=== PATIENT | male | born 1990 | race American Indian/Alaskan Native ===

== ENCOUNTER 2016-10-19 12:00 | Inpatient (IN) | payer OTHER ==
[2016-10-19] MEDS ORDERED: NACL 0.9% 500 ML 500 ML IV ONE (13:54)
[2016-10-19] MEDS ORDERED: TYLENOL PO ONE (13:56)
[2016-10-19 14:37] LABS: Hematocrit 37.9 % (35.5-45.6); Hemoglobin 12.7 gm/dl (11.8-15.2); Mean Corpuscular HGB Conc 34 % (32-34); Mean Corpuscular Hemoglobin 30 pg (28-32); Mean Corpuscular Volume 90 fl (84-94); Platelet Count 203 K/mm3 (140-440); Red Blood Count 4.23 M/mm3 (3.65-5.03); Red Cell Distribution Width 13.9 % (13.2-15.2)
[2016-10-19 14:47] LABS: INR 0.95 (0.87-1.13)
[2016-10-19 14:59] LABS: Alanine Aminotransferase 19 units/L (7-56); Albumin 4.3 g/dL (3.9-5); Alkaline Phosphatase 52 units/L (35-129); Anion Gap 21 mmol/L; BUN/Creatinine Ratio 12.22; Blood Urea Nitrogen 11 mg/dL (9-20); Calcium 8.9 mg/dL (8.4-10.2); Carbon Dioxide 22 mmol/L (22-30); Chloride 93.8 mmol/L (98-107); Glucose 86 mg/dL (75-100); Potassium 4.2 mmol/L (3.6-5.0); Sodium 133 mmol/L (137-145); Total Protein 8.5 g/dL (6.3-8.2)
--- NOTE | 2016-10-19 16:18 | XRay Report ---
FINAL REPORT PROCEDURE: XR CHEST ROUTINE 2V TECHNIQUE: PA and lateral chest radiographs were obtained. CPT 00021 HISTORY: cough/fever r/o pneumonia COMPARISON: No prior studies are available for comparison. FINDINGS: Heart: Normal contour. Mediastinum/Vessels: Normal contour. Lungs/Pleural space: No infiltrate, effusion, or pneumothorax. Bony thorax: No acute osseous abnormality. Other: IMPRESSION: No infiltrates are identified.
[2016-10-19 16:58] LABS: Basophils % (Manual) 0 % (0.0-1.8); Blastocytes % (Manual) 0 %
[2016-10-19 17:00] LABS: Anisocytosis 1+; Diff Status Complete; Elliptocytes Few; Poikilocytosis Few; Target Cells Rare
[2016-10-19] MEDS ORDERED: MOTRIN PO ONE (19:22)
--- NOTE | 2016-10-19 19:38 | Emergency Department Report ---
ED Fever HPI - General Chief Complaint: Fever Stated Complaint: FEVER Time Seen by Provider: 10/19/16 19:22 - History of Present Illness Fever Severity/Quality: low grade ED Review of Systems ROS: Stated complaint: FEVER Other details as noted in HPI ED Past Medical Hx - Past Medical History Hx HIV: Yes Additional medical history: shingles. syphillis - Surgical History Additional Surgical History: neck surgery - Social History Smoking Status: Current Every Day Smoker Substance Use Type: None - Medications Home Medications: Home Medications Medication Instructions Recorded Confirmed Last Taken Type Ibuprofen [Motrin 800 MG tab] 800 mg PO TID PRN #30 tablet 05/25/14 Unknown Rx Levofloxacin [Levaquin] 750 mg PO QDAY #10 tablet 05/25/14 Unknown Rx Ondansetron [Zofran Odt] 4 mg PO Q6H PRN #20 tab.rapdis 05/25/14 Unknown Rx oxyCODONE /ACETAMINOPHEN [Percocet 1 tab PO Q6HR PRN #15 tablet 05/25/14 Unknown Rx 5/325] ED Physical Exam - General Limitations: No Limitations ED Course Vital Signs 10/19/16 10/19/16 10/19/16 13:51 14:00 15:00 Temperature 99.5 F Pulse Rate 102 H Respiratory 18 18 18 Rate Blood Pressure 103/74 O2 Sat by Pulse 98 Oximetry 10/19/16 19:28 Temperature Pulse Rate Respiratory 18 Rate Blood Pressure O2 Sat by Pulse Oximetry ED Medical Decision Making - Lab Data Result diagrams: 10/19/16 14:22 10/19/16 14:22 Critical care attestation.: If time is entered above; I have spent that time in minutes in the direct care of this critically ill patient, excluding procedure time. ED Disposition Condition: Stable Referrals: PRIMARY CARE, [Primary Care Provider] - 3-5 Days
[2016-10-19] MEDS ORDERED: NACL 0.9% 1000 ML 1,000 ML IV ONE ×2 (19:40→21:31)
[2016-10-19 20:04] LABS: Bilirubin,Urine NEG (Negative); Blood,Urine NEG (Negative); Ketones,Urine NEG (Negative); Leukocyte Esterase,Urine NEG (Negative); Nitrite,Urine NEG (Negative); Protein,Urine <15 mg/dL mg/dL (Negative); Urobilinogen,Urine < 2.0 mg/dL (<2.0); WBC,Urine < 1.0 /HPF (0.0-6.0)
[2016-10-19] MEDS ORDERED: TORADOL IV ONE (21:31)
[2016-10-19] MEDS ORDERED: TORADOL ONE (21:35)
[2016-10-19] MEDS ORDERED: BACTRIM DS PO ONE (22:28)
--- NOTE | 2016-10-19 22:39 | Emergency Department Report ---
Entered by DUANE PEREZ, acting as scribe for ARMIDA MOSCOSO PA. ED Fever HPI - General Chief Complaint: Fever Stated Complaint: FEVER Time Seen by Provider: 10/19/16 19:26 Source: patient Exam Limitations: no limitations - History of Present Illness Initial Comments: 26 y/o male with PMHx of HIV, presents to the ED c/o fever since today. Associated symptoms include chills, nausea, vomiting, headache, body aches, cough (with green mucus), ear ache, sore throat but denies dysuria, hematuria, discharge and rash. Patient was treated for syphilis 1 week ago with penicillin and started HIV meds 2 weeks ago. Low CD4 count and high viral count. No alleviating or aggravating factors. NKDA. Timing/Duration: other (today) Fever Severity/Quality: greater than 102 F Fever Therapy FINAL FINISHER FORGING DIES: none Associated Symptoms: cough, headache, nausea/vomiting, other (fever, chills, body aches, denies: dysuria, heamaturia, discharge, rash) ED Review of Systems Comment: All other systems reviewed and negative Constitutional: chills, fever, other (body aches) ENT: ear pain, throat pain Respiratory: cough (green mucus) Gastrointestinal: nausea, vomiting Genitourinary: denies: dysuria, hematuria, discharge Skin: denies: rash Neurological: headache ED Past Medical Hx - Past Medical History Hx HIV: Yes Additional medical history: shingles. syphillis - Surgical History Additional Surgical History: neck surgery - Social History Smoking Status: Current Every Day Smoker Substance Use Type: None - Medications Home Medications: Home Medications Medication Instructions Recorded Confirmed Last Taken Type Ibuprofen [Motrin 800 MG tab] 800 mg PO TID PRN #30 tablet 05/25/14 Unknown Rx Levofloxacin [Levaquin] 750 mg PO QDAY #10 tablet 05/25/14 Unknown Rx Ondansetron [Zofran Odt] 4 mg PO Q6H PRN #20 tab.rapdis 05/25/14 Unknown Rx oxyCODONE /ACETAMINOPHEN [Percocet 1 tab PO Q6HR PRN #15 tablet 05/25/14 Unknown Rx 5/325] ED Physical Exam - General Limitations: No Limitations General appearance: alert, in no apparent distress - Head Head exam: Present: atraumatic, normocephalic, normal inspection - Eye Eye exam: Present: normal appearance, PERRL, EOMI. Absent: scleral icterus, conjunctival injection, nystagmus, periorbital swelling, periorbital tenderness Pupils: Present: normal accommodation - ENT ENT exam: Present: normal exam, normal orophraynx, mucous membranes moist, normal external ear exam - Expanded ENT Exam Expanded Ear exam: Present: normal external inspection TM/Canal exam: Erythema: Left TM, Bulging: Left TM (no mastoid tenderness bilaterally) Mouth exam: Present: normal external inspection, tongue normal Teeth exam: Present: normal inspection Throat exam: Positive: tonsillar erythema. Negative: tonsillomegaly, tonsillar exudate, R peritonsillar mass, L peritonsillar mass - Neck Neck exam: Present: normal inspection, full ROM. Absent: tenderness, meningismus, lymphadenopathy, thyromegaly - Respiratory Respiratory exam: Present: normal lung sounds bilaterally. Absent: respiratory distress, wheezes, rales, rhonchi, stridor, chest wall tenderness, accessory muscle use, decreased breath sounds, prolonged expiratory - Cardiovascular Cardiovascular Exam: Present: regular rate, normal rhythm, normal heart sounds. Absent: bradycardia, tachycardia, irregular rhythm, systolic murmur, diastolic murmur, rubs, gallop - GI/Abdominal GI/Abdominal exam: Present: soft, normal bowel sounds. Absent: distended, tenderness, guarding, rebound, rigid, diminished bowel sounds - Extremities Exam Extremities exam: Present: normal inspection, full ROM, normal capillary refill. Absent: tenderness, pedal edema, joint swelling, calf tenderness - Back Exam Back exam: Present: normal inspection, full ROM. Absent: tenderness, muscle spasm, paraspinal tenderness, vertebral tenderness, rash noted - Neurological Exam Neurological exam: Present: alert, oriented X3, CN II-XII intact, normal gait - Psychiatric Psychiatric exam: Present: normal affect, normal mood - Skin Skin exam: Present: warm, dry, intact, normal color. Absent: rash ED Course Vital Signs 10/19/16 10/19/16 10/19/16 13:51 14:00 15:00 Temperature 99.5 F Pulse Rate 102 H Respiratory 18 18 18 Rate Blood Pressure 103/74 Blood Pressure [Left] O2 Sat by Pulse 98 Oximetry 10/19/16 10/19/16 10/19/16 19:28 20:41 21:42 Temperature 98.7 F Pulse Rate Respiratory 18 18 Rate Blood Pressure Blood Pressure [Left] O2 Sat by Pulse Oximetry 10/19/16 10/19/16 21:43 22:17 Temperature Pulse Rate 110 H 106 H Respiratory 18 18 Rate Blood Pressure Blood Pressure 91/40 113/51 [Left] O2 Sat by Pulse 98 99 Oximetry ED Medical Decision Making - Lab Data Result diagrams: 10/19/16 14:22 10/19/16 14:22 - Medical Decision Making A/P: Compromised state, possible AIDS, elevated LDH, URI, tachycardia and hypotension, possible SIRS 1-urinalysis unremarkable, chest x-ray negative, LDH elevated 2-discussed with Dr. Ledesma 3-case discussed with hospitalist. As patient has URI/possible early pneumonia symptoms with elevated LDH and has as per patient low CD4 and viral load will treat patient empirically with Bactrim double strength 2 g and admit patient to hospital for further evaluation and assessment 4-blood cultures sent ED Disposition Clinical Impression: HIV (human immunodeficiency virus infection), Cough, Viral syndrome Hypotension Qualifiers: Hypotension type: other hypotension type Qualified Code(s): I95.89 - Other hypotension Disposition: OP ADMIT IP TO THIS HOSP Is pt being admited?: Yes Does the pt Need Aspirin: No Condition: Stable Referrals: PRIMARY CARE, [Primary Care Provider] - 3-5 Days This documentation as recorded by the ANA benjamin ELIZABETH,accurately reflects the service I personally performed and the decisions made by ,ARMIDA MOSCOSO PA.
--- NOTE | 2016-10-19 22:44 | History and Physical Report ---
History of Present Illness Date of examination: 10/19/16 Chief complaint: Fever History of present illness: 26-year-old -[place] male with past medical history significant for a [place]/AIDS, syphilis presented to the emergency department complaining of fever, body aches, nausea, shortness of breath, for the last 2 days. Patient complain cough for the last 1 week productive of greenish sputum. Patient was diagnosed with HIV 3 years ago and started on antiretroviral therapy 2 months ago at [facility]. Patient was diagnosed with syphilis based on blood work and she was treated with penicillin injection 2. Patient said he has been also taking Bactrim for prophylaxis. At presentation in the emergency department patient was tachycardic and borderline hypertension and admitted to the floor for further workup and management. REVIEW OF SYSTEMS: GENERAL: no weight change, no fatigue, + fever HEAD: no head ache EYES: no blurry vision, no acute visual loss EARS: no hearing loss, no discharge, no earache NOSE: no stuffiness, no sneezing, no discharge MOUTH, THROAT AND NECK: no bleeding gums, no sore throat, no swollen neck CARDIAC: no palpitations, no dyspnea on exertion, no orthopnea, no PND, no edema , no chest pain RESPIRATORY: + shortness of breath, no wheeze, + cough, greenish sputum, no hemoptysis, no asthma GI: + decreased appetite, + nausea, = vomiting, no dysphagia, no diarrhea, no constipation, no abdominal pain URINARY: no change in frequency, no urgency, no polyuria, no hematuria, no incontinence MUSCULOSKELETAL: no muscle weakness, no pain, no joint stiffness NEUROLOGIC: no loss of sensation/numbness, no tingling, no tremors, no weakness/ paralysis HEMATOLOGIC: no anemia, no easy bruising SKIN: no rashes ENDOCRINE: no heat/cold intolerance, no polyuria, no polydipsia, no thyroid problems, no diabetes PSYCHIATRIC: no anxiety, no depression, no suicidal ideations Past History Past Medical History: other (HIV-AIDS, syphilis) Past Surgical History: No surgical history Social history: full code. denies: smoking, alcohol abuse, prescription drug abuse, IV drug use Family history: no significant family history Medications and Allergies Allergies Allergy/AdvReac Type Severity Reaction Status Date / Time shellfish derived Allergy Hives Verified 08/12/13 03:33 Home Medications Medication Instructions Recorded Confirmed Last Taken Type Ibuprofen [Motrin 800 MG tab] 800 mg PO TID PRN #30 tablet 05/25/14 Unknown Rx Levofloxacin [Levaquin] 750 mg PO QDAY #10 tablet 05/25/14 Unknown Rx Ondansetron [Zofran Odt] 4 mg PO Q6H PRN #20 tab.rapdis 05/25/14 Unknown Rx oxyCODONE /ACETAMINOPHEN [Percocet 1 tab PO Q6HR PRN #15 tablet 05/25/14 Unknown Rx 5/325] Exam - Physical Exam Narrative exam: Not in cardiopulmonary distress. The patient appeared well nourished and normally developed. Vital signs as documented. Head exam is unremarkable. No scleral icterus . Neck is without jugular venous distension, thyromegaly, or carotid bruits. Lungs are clear to auscultation. Cardiac exam reveals regular rate and Rhythm. First and second heart sounds normal. No murmurs, rubs or gallops. Abdominal exam reveals normal bowel sounds, no masses, no organomegaly and no aortic enlargement. Extremities are nonedematous and both femoral and pedal pulses are normal. TRANSPORTATION LEAD: Alert and oriented 3. No focal weakness. - Constitutional Vitals: Temp Pulse Resp BP Pulse Ox 98.7 F 106 H 18 113/51 99 10/19/16 20:41 10/19/16 22:17 10/19/16 22:17 10/19/16 22:17 10/19/16 22:17 Results - Labs CBC & Chem 7: 10/19/16 14:22 10/19/16 14:22 Labs: Laboratory Last Values WBC 10.0 K/mm3 (4.5-11.0) 10/19/16 14:22 RBC 4.23 M/mm3 (3.65-5.03) 10/19/16 14:22 Hgb 12.7 gm/dl (11.8-15.2) 10/19/16 14:22 Hct 37.9 % (35.5-45.6) 10/19/16 14:22 MCV 90 fl (84-94) 10/19/16 14:22 MCH 30 pg (28-32) 10/19/16 14:22 MCHC 34 % (32-34) 10/19/16 14:22 RDW 13.9 % (13.2-15.2) 10/19/16 14:22 Plt Count 203 K/mm3 (140-440) 10/19/16 14:22 Add Manual Diff Complete 10/19/16 14:22 Total Counted 100 10/19/16 14:22 Seg Neuts % (Manual) 91.0 % (40.0-70.0) H 10/19/16 14:22 Band Neutrophils % 0 % 10/19/16 14:22 Lymphocytes % (Manual) 2.0 % (13.4-35.0) L 10/19/16 14:22 Reactive Lymphs % (Man) 0 % 10/19/16 14:22 Monocytes % (Manual) 5.0 % (0.0-7.3) 10/19/16 14:22 Eosinophils % (Manual) 2.0 % (0.0-4.3) 10/19/16 14:22 Basophils % (Manual) 0 % (0.0-1.8) 10/19/16 14:22 Metamyelocytes % 0 % 10/19/16 14:22 Myelocytes % 0 % 10/19/16 14:22 Promyelocytes % 0 % 10/19/16 14:22 Blast Cells % 0 % 10/19/16 14:22 Nucleated RBC % Not Reportable 10/19/16 14:22 Seg Neutrophils # Man 9.1 K/mm3 (1.8-7.7) H 10/19/16 14:22 Band Neutrophils # 0.0 K/mm3 10/19/16 14:22 Lymphocytes # (Manual) 0.2 K/mm3 (1.2-5.4) L 10/19/16 14:22 Abs React Lymphs (Man) 0.0 K/mm3 10/19/16 14:22 Monocytes # (Manual) 0.5 K/mm3 (0.0-0.8) 10/19/16 14:22 Eosinophils # (Manual) 0.2 K/mm3 (0.0-0.4) 10/19/16 14:22 Basophils # (Manual) 0.0 K/mm3 (0.0-0.1) 10/19/16 14:22 Metamyelocytes # 0.0 K/mm3 10/19/16 14:22 Myelocytes # 0.0 K/mm3 10/19/16 14:22 Promyelocytes # 0.0 K/mm3 10/19/16 14:22 Blast Cells # 0.0 K/mm3 10/19/16 14:22 WBC Morphology Not Reportable 10/19/16 14:22 Hypersegmented Neuts Not Reportable 10/19/16 14:22 Hyposegmented Neuts Not Reportable 10/19/16 14:22 Hypogranular Neuts Not Reportable 10/19/16 14:22 Smudge Cells Not Reportable 10/19/16 14:22 Toxic Granulation Not Reportable 10/19/16 14:22 Toxic Vacuolation Not Reportable 10/19/16 14:22 Dohle Bodies Not Reportable 10/19/16 14:22 Pelger-Huet Anomaly Not Reportable 10/19/16 14:22 Jesse Rods Not Reportable 10/19/16 14:22 Platelet Estimate Appears normal 10/19/16 14:22 Clumped Platelets Not Reportable 10/19/16 14:22 Plt Clumps, EDTA Not Reportable 10/19/16 14:22 Large Platelets Not Reportable 10/19/16 14:22 Giant Platelets Not Reportable 10/19/16 14:22 Platelet Satelliting Not Reportable 10/19/16 14:22 Plt Morphology Comment Not Reportable 10/19/16 14:22 RBC Morphology Not Reportable 10/19/16 14:22 Dimorphic RBCs Not Reportable 10/19/16 14:22 Polychromasia Not Reportable 10/19/16 14:22 Hypochromasia Not Reportable 10/19/16 14:22 Poikilocytosis Few 10/19/16 14:22 Anisocytosis 1+ 10/19/16 14:22 Microcytosis Not Reportable 10/19/16 14:22 Macrocytosis Not Reportable 10/19/16 14:22 Spherocytes Not Reportable 10/19/16 14:22 Pappenheimer Bodies Not Reportable 10/19/16 14:22 Sickle Cells Not Reportable 10/19/16 14:22 Target Cells Rare 10/19/16 14:22 Tear Drop Cells Not Reportable 10/19/16 14:22 Ovalocytes Not Reportable 10/19/16 14:22 Helmet Cells Not Reportable 10/19/16 14:22 [place] Bodies Not Reportable 10/19/16 14:22 [place] Rings Not Reportable 10/19/16 14:22 Nito Cells Not Reportable 10/19/16 14:22 Bite Cells Not Reportable 10/19/16 14:22 Crenated Cell Not Reportable 10/19/16 14:22 Elliptocytes Few 10/19/16 14:22 Acanthocytes (Spur) Not Reportable 10/19/16 14:22 Rouleaux Not Reportable 10/19/16 14:22 Hemoglobin C Crystals Not Reportable 10/19/16 14:22 Schistocytes Not Reportable 10/19/16 14:22 Malaria parasites Not Reportable 10/19/16 14:22 [place] Bodies Not Reportable 10/19/16 14:22 Hem Pathologist Commnt No 10/19/16 14:22 PT 12.6 Sec. (12.2-14.9) 10/19/16 14:22 INR 0.95 (0.87-1.13) 10/19/16 14:22 VBG pH 7.367 (7.320-7.420) 10/19/16 14:22 Sodium 133 mmol/L (137-145) L 10/19/16 14:22 Potassium 4.2 mmol/L (3.6-5.0) 10/19/16 14:22 Chloride 93.8 mmol/L (98-107) L 10/19/16 14:22 Carbon Dioxide 22 mmol/L (22-30) 10/19/16 14:22 Anion Gap 21 mmol/L 10/19/16 14:22 BUN 11 mg/dL (9-20) 10/19/16 14:22 Creatinine 0.9 mg/dL (0.8-1.5) 10/19/16 14:22 Estimated GFR > 60 ml/min 10/19/16 14:22 BUN/Creatinine Ratio 12.22 % 10/19/16 14:22 Glucose 86 mg/dL (75-100) 10/19/16 14:22 Lactic Acid 1.50 mmol/L (0.7-2.0) 10/19/16 16:27 Calcium 8.9 mg/dL (8.4-10.2) 10/19/16 14:22 Total Bilirubin 0.70 mg/dL (0.1-1.2) 10/19/16 14:22 AST 26 units/L (5-40) 10/19/16 14:22 ALT 19 units/L (7-56) 10/19/16 14:22 Alkaline Phosphatase 52 units/L (35-129) 10/19/16 14:22 Lactate Dehydrogenase 251 units/L (91-180) H 10/19/16 14:22 Total Creatine Kinase 181 units/L (55-170) H 10/19/16 14:22 Total Protein 8.5 g/dL (6.3-8.2) H 10/19/16 14:22 Albumin 4.3 g/dL (3.9-5) 10/19/16 14:22 Albumin/Globulin Ratio 1.0 % 10/19/16 14:22 Urine Color Straw (Yellow) 10/19/16 19:45 Urine Turbidity Clear (Clear) 10/19/16 19:45 Urine pH 7.0 (5.0-7.0) 10/19/16 19:45 Ur Specific [place] 1.005 (1.003-1.030) 10/19/16 19:45 Urine Protein <15 mg/dl mg/dL (Negative) 10/19/16 19:45 Urine Glucose (UA) Neg mg/dL (Negative) 10/19/16 19:45 Urine Ketones Neg mg/dL (Negative) 10/19/16 19:45 Urine Blood Neg (Negative) 10/19/16 19:45 Urine Nitrite Neg (Negative) 10/19/16 19:45 Urine Bilirubin Neg (Negative) 10/19/16 19:45 Urine Urobilinogen < 2.0 mg/dL (<2.0) 10/19/16 19:45 Ur Leukocyte Esterase Neg (Negative) 10/19/16 19:45 Urine WBC (Auto) < 1.0 /HPF (0.0-6.0) 10/19/16 19:45 Urine RBC (Auto) 1.0 /HPF (0.0-6.0) 10/19/16 19:45 - Imaging and Cardiology Chest x-ray: image reviewed (no acute cardiothoracic abnormality evident.) Assessment and Plan Assessment and plan: Upper respiratory tract infection ? PCP HIV-AIDS History of syphilis - Patient started on Bactrim - Patient is not on his HIV medications, please find out his medications and restart - ID consult placed - Appropriate home medications restarted - On IV fluids DVT prophylaxis - heparin Disposition - Admit to [facility] Advance Directives: Yes VTE prophylaxis?: Chemical Plan of care discussed with patient/family: Yes
[2016-10-20] MEDS ORDERED: PERCOCET 5/325 PO PRN (00:39)
[2016-10-20] MEDS ORDERED: TYLENOL PO PRN (00:40)
[2016-10-20] MEDS ORDERED: ZOFRAN IV PRN (00:40)
[2016-10-20] MEDS ORDERED: ALUM-MAG HYDROX-SIMETH 200-200-20MG/5ML PO PRN (00:40)
[2016-10-20] MEDS: HEPARIN SUB-Q SCH ×3 (06:20→21:25)
[2016-10-20] MEDS: NACL 0.9% 1000 ML 1,000 ML IV SCH (06:21)
--- NOTE | 2016-10-20 07:21 | Admit Criteria Form ---
<GANTI,MIRA STEPHENSON - Last Filed: 10/20/16 07:20> Admission Criteria Documentation: FEVER Clinical Indications for Inpatient Care (Place 'X' for any and all applicable criteria): Ongoing inpatient care may be indicated for fever with ANY ONE of the following[ D] (5)(27)(28)(29)(30)(31): [ ]I. Bacteremia [ ]II. Evidence of significant systemic illness as indicated by ANY ONE of the following: [ ]a) Persistently high temperatures greater than 103.1 degrees F ( 39.5 degrees C) (oral) [ ]b) New-onset hypoxia [ ]c) Hemodynamic instability [ ]d) Mental status changes [ ]e) Decreased urine output due to developing renal insufficiency [ ]f) New focal neurologic deficit (eg, stroke) [ ]g) Seizures [ ]h) Rigors [ ]i) Dehydration or hypovolemia [ ]j) Inadequate oral intake [ ]III. Patient in the immediate postoperative period with ANY ONE of the following (E)(23)(24): [ ]a) Evidence of specific localizing infection requiring ongoing inpatient evaluation or treatment (eg,abscess, severe pneumonia, wound infection ) [ ]b) Known or suspected cause of fever requiring ongoing inpatient evaluation or treatment (eg, DVT) [ ]c) Evidence of malignant hyperthermia (eg, unexplained tachycardia and muscle rigidity after depolarizing muscular blocking agent or inhaled anesthetic agent) [X]IV. Suspected cause requiring acute care (eg, endocarditis, meningitis) [ ]V. High suspicion of bacteremia as indicated by severe constitutional symptoms in patient at high risk as indicated by ANY ONE of the following: [ ]a) Immunocompromised state [D](22) [ ]b) Age <3 years or >65 years [ ]c) Severe comorbidities (eg, poorly controlled diabetes, severe COPD) [ ]. High suspicion for fungal infection as indicated by ANY ONE of the following (22)(25): [ ]a) Febrile neutropenia (WBC <500/mm3 (0.5 X 109/L)) for >4 days despite broad spectrum antibiotics [ ]b) Imaging findings suggestive of fungal infection [ ]c) Immunocompromised state [ ]d) Immunocompromised patient colonized with Aspergillus species [ ]VII. Evidence of infection of medical devices such as implanted catheters or exposed hardware [ ]VIII. Suspected neuroleptic malignant syndrome as evidenced by ALL of the following (15): [ ]a) Recent use of neuroleptic medication (eg, haloperidol, prochlorperazine, metoclopramide) [ ]b) New-onset muscle rigidity Extended stay beyond goal length of stay for primary condition may be needed until ALL of the following are present(16)(17)(18)(19)(20)(21): [ ]a) Temperature status acceptable as indicated by ANY ONE of the following: [ ]i) Temp <38.1C (100.5 F) (oral) [ ]ii) Temp as expected for disease process and care performable at next level of care [ ]b) Hemodynamic stability [ ]c) Cultures negative or infection identified and under adequate treatment [ ]d) Behavior or mental status abnormalities absent or manageable at lower level of care (Also use Mental Status Change Criteria Form) for further information. [ ]e) Medical comorbidities absent or manageable at a lower level of care The original [email or web address] content created by [email or web address] has been revised. The portions of the content which have been revised are identified through the use of italic text or in bold, and [facility] has neither reviewed nor approved the modified material. All other unmodified content is copyright [email or web address]. Please see references footnoted in the original [email or web address] edition 2016 Admission Criteria Met: Yes <LOKESH HERCULES - Last Filed: 10/22/16 09:58> Admission Criteria Documentation: This admission criteria sheet had no bearing on any medical decision making or clinical decisions from the emergency department and full admission vs observational stay will be decided upon by the hospitalist service and any subsequent specialists seeing this patient.
[2016-10-20] MEDS ORDERED: BACTRIM DS PO SCH (10:00)
--- NOTE | 2016-10-20 10:05 | Progress Note ---
Assessment and Plan - Patient Problems (1) Cough Current Visit: Yes Status: Acute Plan to address problem: Most likely secondary to sinusitis with postnasal drip. We'll add decongestant steroid taper and continue antibiotics. Patient chest x-ray at present unremarkable. Not very hypoxemic unlikely PCP at this time. (2) HIV (human immunodeficiency virus infection) Current Visit: Yes Status: Acute Plan to address problem: ID to resume antiretrovirals if able. (3) Acute bronchitis Current Visit: Yes Status: Acute Qualifiers: Bronchitis organism: B Plan to address problem: Acute bronchitis acute sinusitis. We'll add Mucinex add steroid taper we'll add also nebulizer treatment for wheezing and treat for sinusitis with postnasal drip. If patient cleared for PCP will change patient to by mouth antibiotics only. (4) Acute sinusitis Current Visit: Yes Status: Acute Qualifiers: Sinusitis location: S Recurrence: R History Interval history: Asst. states he feels bad headache sinus tenderness. low grade fever. Hospitalist Physical - Constitutional Vitals: Temp Pulse Resp BP Pulse Ox 100.3 F H 111 H 15 104/54 99 10/20/16 07:57 10/20/16 07:57 10/20/16 07:57 10/20/16 07:57 10/20/16 07:57 General appearance: Present: mild distress, well-nourished - EENT Eyes: Present: PERRL, EOM intact ENT: hearing intact, clear oral mucosa, dentition normal, other (sinus tenderness and pain.) - Neck Neck: Present: supple, normal ROM - Respiratory Respiratory effort: normal Respiratory: bilateral: wheezing - Cardiovascular Rhythm: regular - Extremities Extremities: no ischemia, pulses intact, pulses symmetrical, No edema, normal temperature Peripheral Pulses: within normal limits - Abdominal General gastrointestinal: soft, non-tender, non-distended - Integumentary Integumentary: Present: clear, warm, dry - Psychiatric Psychiatric: appropriate mood/affect - Neurologic Neurologic: CNII-XII intact Results - Labs CBC & Chem 7: 10/19/16 14:22 10/19/16 14:22 Labs: Laboratory Last Values WBC 10.0 K/mm3 (4.5-11.0) 10/19/16 14:22 RBC 4.23 M/mm3 (3.65-5.03) 10/19/16 14:22 Hgb 12.7 gm/dl (11.8-15.2) 10/19/16 14:22 Hct 37.9 % (35.5-45.6) 10/19/16 14:22 MCV 90 fl (84-94) 10/19/16 14:22 MCH 30 pg (28-32) 10/19/16 14:22 MCHC 34 % (32-34) 10/19/16 14:22 RDW 13.9 % (13.2-15.2) 10/19/16 14:22 Plt Count 203 K/mm3 (140-440) 10/19/16 14:22 Add Manual Diff Complete 10/19/16 14:22 Total Counted 100 10/19/16 14:22 Seg Neuts % (Manual) 91.0 % (40.0-70.0) H 10/19/16 14:22 Band Neutrophils % 0 % 10/19/16 14:22 Lymphocytes % (Manual) 2.0 % (13.4-35.0) L 10/19/16 14:22 Reactive Lymphs % (Man) 0 % 10/19/16 14:22 Monocytes % (Manual) 5.0 % (0.0-7.3) 10/19/16 14:22 Eosinophils % (Manual) 2.0 % (0.0-4.3) 10/19/16 14:22 Basophils % (Manual) 0 % (0.0-1.8) 10/19/16 14:22 Metamyelocytes % 0 % 10/19/16 14:22 Myelocytes % 0 % 10/19/16 14:22 Promyelocytes % 0 % 10/19/16 14:22 Blast Cells % 0 % 10/19/16 14:22 Nucleated RBC % Not Reportable 10/19/16 14:22 Seg Neutrophils # Man 9.1 K/mm3 (1.8-7.7) H 10/19/16 14:22 Band Neutrophils # 0.0 K/mm3 10/19/16 14:22 Lymphocytes # (Manual) 0.2 K/mm3 (1.2-5.4) L 10/19/16 14:22 Abs React Lymphs (Man) 0.0 K/mm3 10/19/16 14:22 Monocytes # (Manual) 0.5 K/mm3 (0.0-0.8) 10/19/16 14:22 Eosinophils # (Manual) 0.2 K/mm3 (0.0-0.4) 10/19/16 14:22 Basophils # (Manual) 0.0 K/mm3 (0.0-0.1) 10/19/16 14:22 Metamyelocytes # 0.0 K/mm3 10/19/16 14:22 Myelocytes # 0.0 K/mm3 10/19/16 14:22 Promyelocytes # 0.0 K/mm3 10/19/16 14:22 Blast Cells # 0.0 K/mm3 10/19/16 14:22 WBC Morphology Not Reportable 10/19/16 14:22 Hypersegmented Neuts Not Reportable 10/19/16 14:22 Hyposegmented Neuts Not Reportable 10/19/16 14:22 Hypogranular Neuts Not Reportable 10/19/16 14:22 Smudge Cells Not Reportable 10/19/16 14:22 Toxic Granulation Not Reportable 10/19/16 14:22 Toxic Vacuolation Not Reportable 10/19/16 14:22 Dohle Bodies Not Reportable 10/19/16 14:22 Pelger-Huet Anomaly Not Reportable 10/19/16 14:22 Jesse Rods Not Reportable 10/19/16 14:22 Platelet Estimate Appears normal 10/19/16 14:22 Clumped Platelets Not Reportable 10/19/16 14:22 Plt Clumps, EDTA Not Reportable 10/19/16 14:22 Large Platelets Not Reportable 10/19/16 14:22 Giant Platelets Not Reportable 10/19/16 14:22 Platelet Satelliting Not Reportable 10/19/16 14:22 Plt Morphology Comment Not Reportable 10/19/16 14:22 RBC Morphology Not Reportable 10/19/16 14:22 Dimorphic RBCs Not Reportable 10/19/16 14:22 Polychromasia Not Reportable 10/19/16 14:22 Hypochromasia Not Reportable 10/19/16 14:22 Poikilocytosis Few 10/19/16 14:22 Anisocytosis 1+ 10/19/16 14:22 Microcytosis Not Reportable 10/19/16 14:22 Macrocytosis Not Reportable 10/19/16 14:22 Spherocytes Not Reportable 10/19/16 14:22 Pappenheimer Bodies Not Reportable 10/19/16 14:22 Sickle Cells Not Reportable 10/19/16 14:22 Target Cells Rare 10/19/16 14:22 Tear Drop Cells Not Reportable 10/19/16 14:22 Ovalocytes Not Reportable 10/19/16 14:22 Helmet Cells Not Reportable 10/19/16 14:22 [place] Bodies Not Reportable 10/19/16 14:22 [place] Rings Not Reportable 10/19/16 14:22 [place] Cells Not Reportable 10/19/16 14:22 Bite Cells Not Reportable 10/19/16 14:22 Crenated Cell Not Reportable 10/19/16 14:22 Elliptocytes Few 10/19/16 14:22 Acanthocytes (Spur) Not Reportable 10/19/16 14:22 Rouleaux Not Reportable 10/19/16 14:22 Hemoglobin C Crystals Not Reportable 10/19/16 14:22 Schistocytes Not Reportable 10/19/16 14:22 Malaria parasites Not Reportable 10/19/16 14:22 [place] Bodies Not Reportable 10/19/16 14:22 Hem Pathologist Commnt No 10/19/16 14:22 PT 12.6 Sec. (12.2-14.9) 10/19/16 14:22 INR 0.95 (0.87-1.13) 10/19/16 14:22 VBG pH 7.367 (7.320-7.420) 10/19/16 14:22 Sodium 133 mmol/L (137-145) L 10/19/16 14:22 Potassium 4.2 mmol/L (3.6-5.0) 10/19/16 14:22 Chloride 93.8 mmol/L (98-107) L 10/19/16 14:22 Carbon Dioxide 22 mmol/L (22-30) 10/19/16 14:22 Anion Gap 21 mmol/L 10/19/16 14:22 BUN 11 mg/dL (9-20) 10/19/16 14:22 Creatinine 0.9 mg/dL (0.8-1.5) 10/19/16 14:22 Estimated GFR > 60 ml/min 10/19/16 14:22 BUN/Creatinine Ratio 12.22 % 10/19/16 14:22 Glucose 86 mg/dL (75-100) 10/19/16 14:22 Lactic Acid 1.50 mmol/L (0.7-2.0) 10/19/16 16:27 Calcium 8.9 mg/dL (8.4-10.2) 10/19/16 14:22 Total Bilirubin 0.70 mg/dL (0.1-1.2) 10/19/16 14:22 AST 26 units/L (5-40) 10/19/16 14:22 ALT 19 units/L (7-56) 10/19/16 14:22 Alkaline Phosphatase 52 units/L (35-129) 10/19/16 14:22 Lactate Dehydrogenase 251 units/L (91-180) H 10/19/16 14:22 Total Creatine Kinase 181 units/L (55-170) H 10/19/16 14:22 Total Protein 8.5 g/dL (6.3-8.2) H 10/19/16 14:22 Albumin 4.3 g/dL (3.9-5) 10/19/16 14:22 Albumin/Globulin Ratio 1.0 % 10/19/16 14:22 Urine Color Straw (Yellow) 10/19/16 19:45 Urine Turbidity Clear (Clear) 10/19/16 19:45 Urine pH 7.0 (5.0-7.0) 10/19/16 19:45 Ur Specific [place] 1.005 (1.003-1.030) 10/19/16 19:45 Urine Protein <15 mg/dl mg/dL (Negative) 10/19/16 19:45 Urine Glucose (UA) Neg mg/dL (Negative) 10/19/16 19:45 Urine Ketones Neg mg/dL (Negative) 10/19/16 19:45 Urine Blood Neg (Negative) 10/19/16 19:45 Urine Nitrite Neg (Negative) 10/19/16 19:45 Urine Bilirubin Neg (Negative) 10/19/16 19:45 Urine Urobilinogen < 2.0 mg/dL (<2.0) 10/19/16 19:45 Ur Leukocyte Esterase Neg (Negative) 10/19/16 19:45 Urine WBC (Auto) < 1.0 /HPF (0.0-6.0) 10/19/16 19:45 Urine RBC (Auto) 1.0 /HPF (0.0-6.0) 10/19/16 19:45 - Imaging and Cardiology Chest x-ray: image reviewed
[2016-10-20] MEDS ORDERED: HYDROMET PO PRN (11:26)
[2016-10-20] MEDS: PERCOCET 5/325 PO PRN ×2 (12:35→21:25)
--- NOTE | 2016-10-20 13:18 | Consultation ---
History of Present Illness - Reason for Consult Consult date: 10/20/16 PJP? Requesting physician: TE BILLY - History of Present Illness 26-year-old male with history of AIDS diagnosed in 2012, syphilis treated and recent throat gonorrhea treated, follows Dr Ramirez at [facility], currently taking genvoya for 4 weeks. He was off ART for several years. He saw Dr Serrano 2 weeks ago. Patient is admitted on 10/19/16 due to 2-week history of dry cough and 48h hour-history of progressive SOB and on/off fever. Patient also reports malaise, body aches and nausea. Denies diarrhea, vomiting and abdominal pain. He reports he has not missed any dose of genvoya. He was taking bactrim prophylaxis. In the ED, temp 99.5, HR 102, BP 103/74, WBC 10K, Hg 12.7, plat 203, CR 0.9, UA neg. CXR neg. Blood cx so far neg. Influenza antigen neg. Current Antimicrobials: bactrim DS 10/19 Previous Antimicrobials: Microbiology: Blood cultures: 10/19 ngtd Urine cultures: 10/19 neg Respiratory cultures: Wound cultures: Stool cultures: Other: Influenza 10/19 ngtd Past History Past Medical History: other (HIV-AIDS, syphilis, throay gonorrhea) Past Surgical History: No surgical history Social history: full code. denies: smoking, alcohol abuse, prescription drug abuse, IV drug use Family history: no significant family history Medications and Allergies Allergies Allergy/AdvReac Type Severity Reaction Status Date / Time shellfish derived Allergy Hives Verified 08/12/13 03:33 Home Medications Medication Instructions Recorded Confirmed Last Taken Type Ibuprofen [Motrin 800 MG tab] 800 mg PO TID PRN #30 tablet 05/25/14 10/20/16 Unknown Rx Levofloxacin [Levaquin] 750 mg PO QDAY #10 tablet 05/25/14 10/20/16 Unknown Rx Ondansetron [Zofran Odt] 4 mg PO Q6H PRN #20 tab.rapdis 05/25/14 10/20/16 Unknown Rx oxyCODONE /ACETAMINOPHEN [Percocet 1 tab PO Q6HR PRN #15 tablet 05/25/14 Unknown Rx 5/325] Active Meds: Active Medications Acetaminophen (Tylenol) 650 mg PO Q4H PRN PRN Reason: Pain MILD(1-3)/Fever >100.5/TURNER Al Hydrox/Mg Hydrox/Simethicone (Alum-Mag Hydrox-Simeth [id number]/5ml) 30 ml PO Q4H PRN PRN Reason: Indigestion Albuterol (Proventil) 2.5 mg IH TIDRT [facility] Heparin Sodium (Porcine) (Heparin) 5,000 unit SUB-Q Q8HR [facility] Last Admin: 10/20/16 06:20 Dose: Not Given Hydrocodone Bit/Homatropine Methylb (Hydromet) 5 ml PO Q6H PRN PRN Reason: Cough Sodium Chloride (Nacl 0.9% 1000 Ml) 1,000 mls @ 100 mls/hr IV DIRECT [facility] Last Admin: 10/20/16 06:21 Dose: 100 mls/hr Loratadine/Pseudoephedrine Sulfate (Claritin-D 24hr) 1 each PO Q24HR [facility] Ondansetron HCl (Zofran) 4 mg IV Q8H PRN PRN Reason: N/V unrelieved by Reglan Oxycodone/Acetaminophen (Percocet 5/325) 1 tab PO Q6H PRN PRN Reason: Pain Last Admin: 10/20/16 12:35 Dose: 1 tab Trimethoprim/Sulfamethoxazole (Bactrim Ds) 2 each PO Q12HR [facility]I Last Admin: 10/20/16 09:55 Dose: 2 each Review of Systems Constitutional: weight gain, fever, chills, sweats, fatigue, weakness, malaise, no weight loss Ears, nose, mouth and throat: no nasal discharge, no sinus pressure, no sinus pain Cardiovascular: no chest pain, no orthopnea, no rapid/irregular heart beat, no lightheadedness Respiratory: cough, shortness of breath, no hemoptysis Gastrointestinal: nausea, no vomiting, no diarrhea, no constipation Genitourinary Male: no dysuria, no urinary frequency Rectal: no pain Musculoskeletal: no low back pain Integumentary: no rash, no pruritis Neurological: no head injury, no seizures, no confusion Psychiatric: no anxiety, no insomnia, no suicidal ideation Physical Examination - Physical Exam Narrative exam: General appearance: Alert in NAD, conversant Eyes: anicteric sclerae, moist conjunctivae; no lid-lag; PERRLA HENT: Atraumatic; oropharynx clear with moist mucous membranes and no mucosal ulcerations/no oral thrush; normal hard and soft palate. Normal external ears. Neck: Trachea midline; supple, no thyromegaly or lymphadenopathy Lungs: doe rhonchi CV: RRR, no murmurs Abdomen: Soft, non-tender; no masses or hepatosplenomegaly Extremities: No peripheral edema or extremity lymphadenopathy Skin: Normal temperature, turgor and texture; no rash, ulcers or subcutaneous nodules Psych: Appropriate affect, alert and oriented to person, place and time. Neuro: alert and oriented x 3. Moving all extermities Lines: No CVL / PICC - Constitutional Vitals: Vital Signs Temp Pulse Resp BP Pulse Ox 100.3 F H 105 H 15 111/63 99 10/20/16 11:38 10/20/16 11:38 10/20/16 11:38 10/20/16 11:38 10/20/16 11:38 Temperature -Last 24 Hours Temperature 100.3 F Temperature 100.3 F Temperature 98.9 F Results - Labs CBC & Chem 7: 10/19/16 14:22 10/19/16 14:22 Assessment and Plan Assessment: 1) Sepsis: Present on admission, manifested by fever, tachycardia. Etiology - PJP pneumonia 2) Presumed PJP pneumonia in the setting of IRIS, less likely bronchitis / CAP 3) AIDS - recently started on genvoya 4 weeks ago - unknown CD4/VL 4) History of syphilis-treated 5) History of oropharygeal gonorrhea-treated 6) History of zoster Plan: -follow-up blood cultures, urine culture -obtain respiratory cultures, procalcitonin, C-reactive protein (CRP) -check cryptococcal serum antigen -obtain CD4, HIV-viral load -change bactrim PO to Bactrin IV -add levaquin IV to cover CAP -monitor for hypoxemia -if O2 sat <92 will start IV solumedrol -continue genvoya -repeat CXR in the am Thank you Dr Te Billy for your consultation, will follow up with you. Leticia Bob MD Infectious Diseases Specialist [facility], [place], [facility] M [phone] O [phone]
[2016-10-20] MEDS: PROVENTIL IH SCH ×2 (13:24→20:42)
[2016-10-20] MEDS: LEVAQUIN 750MG/150ML 750 MG/150 ML BAG IV SCH (14:43)
[2016-10-20] MEDS: D5W IV SCH ×2 (18:22→21:22)
[2016-10-20] MEDS: BACTRIM IV SCH ×2 (18:22→21:22)
[2016-10-21] MEDS: NACL 0.9% 1000 ML 1,000 ML IV SCH (01:34)
[2016-10-21] MEDS: BACTRIM IV SCH ×4 (02:47→23:35)
[2016-10-21] MEDS: D5W IV SCH ×4 (02:47→23:35)
[2016-10-21] MEDS: HEPARIN SUB-Q SCH ×4 (05:19→23:38)
[2016-10-21] MEDS: PROVENTIL IH SCH ×4 (07:22→20:04)
[2016-10-21] MEDS: CLARITIN-D 24HR PO SCH (11:06)
--- NOTE | 2016-10-21 11:36 | Progress Note ---
Assessment and Plan - Patient Problems (1) Cough Current Visit: Yes Status: Acute Plan to address problem: Has been diagnosed with PCP pneumonia versus community-acquired pneumonia. Patient also has sinusitis. (2) HIV (human immunodeficiency virus infection) Current Visit: Yes Status: Acute Plan to address problem: Patient has resumed antiretrovirals (3) Acute bronchitis Current Visit: Yes Status: Acute Qualifiers: Bronchitis organism: B Plan to address problem: Acute bronchitis acute sinusitis. We'll add Mucinex add steroid taper we'll add also nebulizer treatment for wheezing and treat for sinusitis with postnasal drip. If patient cleared for PCP will change patient to by mouth antibiotics only. (4) Acute sinusitis Current Visit: Yes Status: Acute Qualifiers: Sinusitis location: S Recurrence: R Plan to address problem: Patient states he felt improvement with antihistamine. Patient also improved with nebulizers and antibiotics. (5) Sepsis associated with AIDS Current Visit: Yes Status: Acute Plan to address problem: Most likely secondary to PJP. versus community-acquired pneumonia currently on Bactrim and Levaquin for coverage of both. Seems to be responding well patient' s fever curve is going down and clinically he feels improved. History Interval history: Patient feels better today. Less headache fever curve being. Improving myalgias and arthralgias. All questions answered to patient's satisfaction. Hospitalist Physical - Constitutional Vitals: Temp Pulse Resp BP Pulse Ox 99.0 F 108 H 18 105/41 94 10/21/16 07:48 10/21/16 07:48 10/21/16 07:48 10/21/16 07:48 10/21/16 07:48 General appearance: Present: mild distress, well-nourished - EENT Eyes: Present: PERRL, EOM intact ENT: hearing intact, clear oral mucosa, dentition normal - Neck Neck: Present: supple, normal ROM - Respiratory Respiratory effort: normal Respiratory: bilateral: rhonchi (few) - Cardiovascular Rhythm: regular Heart Sounds: Present: S1 & S2 - Extremities Extremities: no ischemia, pulses intact, pulses symmetrical, No edema, normal temperature, normal color Peripheral Pulses: within normal limits - Abdominal General gastrointestinal: soft, non-tender, non-distended - Psychiatric Psychiatric: appropriate mood/affect, intact judgment & insight - Neurologic Neurologic: CNII-XII intact Results - Labs CBC & Chem 7: 09/09/17 14:22 10/19/16 14:22 Labs: Laboratory Last Values WBC 10.0 K/mm3 (4.5-11.0) 10/19/16 14:22 RBC 4.23 M/mm3 (3.65-5.03) 10/19/16 14:22 Hgb 12.7 gm/dl (11.8-15.2) 10/19/16 14:22 Hct 37.9 % (35.5-45.6) 10/19/16 14:22 MCV 90 fl (84-94) 10/19/16 14:22 MCH 30 pg (28-32) 10/19/16 14:22 MCHC 34 % (32-34) 10/19/16 14:22 RDW 13.9 % (13.2-15.2) 10/19/16 14:22 Plt Count 203 K/mm3 (140-440) 10/19/16 14:22 Add Manual Diff Complete 10/19/16 14:22 Total Counted 100 10/19/16 14:22 Seg Neuts % (Manual) 91.0 % (40.0-70.0) H 10/19/16 14:22 Band Neutrophils % 0 % 10/19/16 14:22 Lymphocytes % (Manual) 2.0 % (13.4-35.0) L 10/19/16 14:22 Reactive Lymphs % (Man) 0 % 10/19/16 14:22 Monocytes % (Manual) 5.0 % (0.0-7.3) 10/19/16 14:22 Eosinophils % (Manual) 2.0 % (0.0-4.3) 10/19/16 14:22 Basophils % (Manual) 0 % (0.0-1.8) 10/19/16 14:22 Metamyelocytes % 0 % 10/19/16 14:22 Myelocytes % 0 % 10/19/16 14:22 Promyelocytes % 0 % 10/19/16 14:22 Blast Cells % 0 % 10/19/16 14:22 Nucleated RBC % Not Reportable 10/19/16 14:22 Seg Neutrophils # Man 9.1 K/mm3 (1.8-7.7) H 10/19/16 14:22 Band Neutrophils # 0.0 K/mm3 10/19/16 14:22 Lymphocytes # (Manual) 0.2 K/mm3 (1.2-5.4) L 10/19/16 14:22 Abs React Lymphs (Man) 0.0 K/mm3 10/19/16 14:22 Monocytes # (Manual) 0.5 K/mm3 (0.0-0.8) 10/19/16 14:22 Eosinophils # (Manual) 0.2 K/mm3 (0.0-0.4) 10/19/16 14:22 Basophils # (Manual) 0.0 K/mm3 (0.0-0.1) 10/19/16 14:22 Metamyelocytes # 0.0 K/mm3 10/19/16 14:22 Myelocytes # 0.0 K/mm3 10/19/16 14:22 Promyelocytes # 0.0 K/mm3 10/19/16 14:22 Blast Cells # 0.0 K/mm3 10/19/16 14:22 WBC Morphology Not Reportable 10/19/16 14:22 Hypersegmented Neuts Not Reportable 10/19/16 14:22 Hyposegmented Neuts Not Reportable 10/19/16 14:22 Hypogranular Neuts Not Reportable 10/19/16 14:22 Smudge Cells Not Reportable 10/19/16 14:22 Toxic Granulation Not Reportable 10/19/16 14:22 Toxic Vacuolation Not Reportable 10/19/16 14:22 Dohle Bodies Not Reportable 10/19/16 14:22 Pelger-Huet Anomaly Not Reportable 10/19/16 14:22 Jesse Rods Not Reportable 10/19/16 14:22 Platelet Estimate Appears normal 10/19/16 14:22 Clumped Platelets Not Reportable 10/19/16 14:22 Plt Clumps, EDTA Not Reportable 10/19/16 14:22 Large Platelets Not Reportable 10/19/16 14:22 Giant Platelets Not Reportable 10/19/16 14:22 Platelet Satelliting Not Reportable 10/19/16 14:22 Plt Morphology Comment Not Reportable 10/19/16 14:22 RBC Morphology Not Reportable 10/19/16 14:22 Dimorphic RBCs Not Reportable 10/19/16 14:22 Polychromasia Not Reportable 10/19/16 14:22 Hypochromasia Not Reportable 10/19/16 14:22 Poikilocytosis Few 10/19/16 14:22 Anisocytosis 1+ 10/19/16 14:22 Microcytosis Not Reportable 10/19/16 14:22 Macrocytosis Not Reportable 10/19/16 14:22 Spherocytes Not Reportable 10/19/16 14:22 Pappenheimer Bodies Not Reportable 10/19/16 14:22 Sickle Cells Not Reportable 10/19/16 14:22 Target Cells Rare 10/19/16 14:22 Tear Drop Cells Not Reportable 10/19/16 14:22 Ovalocytes Not Reportable 10/19/16 14:22 Helmet Cells Not Reportable 10/19/16 14:22 [place] Bodies Not Reportable 10/19/16 14:22 [place] Rings Not Reportable 10/19/16 14:22 [place] Cells Not Reportable 10/19/16 14:22 Bite Cells Not Reportable 10/19/16 14:22 Crenated Cell Not Reportable 10/19/16 14:22 Elliptocytes Few 10/19/16 14:22 Acanthocytes (Spur) Not Reportable 10/19/16 14:22 Rouleaux Not Reportable 10/19/16 14:22 Hemoglobin C Crystals Not Reportable 10/19/16 14:22 Schistocytes Not Reportable 10/19/16 14:22 Malaria parasites Not Reportable 10/19/16 14:22 [place] Bodies Not Reportable 10/19/16 14:22 Hem Pathologist Commnt No 10/19/16 14:22 PT 12.6 Sec. (12.2-14.9) 10/19/16 14:22 INR 0.95 (0.87-1.13) 10/19/16 14:22 VBG pH 7.367 (7.320-7.420) 10/19/16 14:22 Sodium 133 mmol/L (137-145) L 10/19/16 14:22 Potassium 4.2 mmol/L (3.6-5.0) 10/19/16 14:22 Chloride 93.8 mmol/L (98-107) L 10/19/16 14:22 Carbon Dioxide 22 mmol/L (22-30) 10/19/16 14:22 Anion Gap 21 mmol/L 10/19/16 14:22 BUN 11 mg/dL (9-20) 10/19/16 14:22 Creatinine 0.9 mg/dL (0.8-1.5) 10/19/16 14:22 Estimated GFR > 60 ml/min 10/19/16 14:22 BUN/Creatinine Ratio 12.22 % 10/19/16 14:22 Glucose 86 mg/dL (75-100) 10/19/16 14:22 Lactic Acid 1.50 mmol/L (0.7-2.0) 10/19/16 16:27 Calcium 8.9 mg/dL (8.4-10.2) 10/19/16 14:22 Total Bilirubin 0.70 mg/dL (0.1-1.2) 10/19/16 14:22 AST 26 units/L (5-40) 10/19/16 14:22 ALT 19 units/L (7-56) 10/19/16 14:22 Alkaline Phosphatase 52 units/L (35-129) 10/19/16 14:22 Lactate Dehydrogenase 251 units/L (91-180) H 10/19/16 14:22 Total Creatine Kinase 181 units/L (55-170) H 10/19/16 14:22 C-Reactive Protein 5.40 mg/dL (0.00-1.30) H 10/20/16 13:52 Total Protein 8.5 g/dL (6.3-8.2) H 10/19/16 14:22 Albumin 4.3 g/dL (3.9-5) 10/19/16 14:22 Albumin/Globulin Ratio 1.0 % 10/19/16 14:22 Urine Color Straw (Yellow) 10/19/16 19:45 Urine Turbidity Clear (Clear) 10/19/16 19:45 Urine pH 7.0 (5.0-7.0) 10/19/16 19:45 Ur Specific [place] 1.005 (1.003-1.030) 10/19/16 19:45 Urine Protein <15 mg/dl mg/dL (Negative) 10/19/16 19:45 Urine Glucose (UA) Neg mg/dL (Negative) 10/19/16 19:45 Urine Ketones Neg mg/dL (Negative) 10/19/16 19:45 Urine Blood Neg (Negative) 10/19/16 19:45 Urine Nitrite Neg (Negative) 10/19/16 19:45 Urine Bilirubin Neg (Negative) 10/19/16 19:45 Urine Urobilinogen < 2.0 mg/dL (<2.0) 10/19/16 19:45 Ur Leukocyte Esterase Neg (Negative) 10/19/16 19:45 Urine WBC (Auto) < 1.0 /HPF (0.0-6.0) 10/19/16 19:45 Urine RBC (Auto) 1.0 /HPF (0.0-6.0) 10/19/16 19:45
--- NOTE | 2016-10-21 12:17 | Progress Note ---
Assessment and Plan Assessment: 1) Sepsis: improving. Etiology - PJP pneumonia. CRP 5 2) Presumed PJP pneumonia in the setting of IRIS, less likely bronchitis / CAP - better 3) AIDS - recently started on genvoya 4 weeks ago - unknown CD4/VL 4) History of syphilis-treated 5) History of oropharygeal gonorrhea-treated 6) History of zoster Plan: -f/u procalcitonin, cryptococcal serum antigen, CD4, HIV-viral load -continue Bactrin IV and levaquin IV -If continues to improve ok to D/C home on bactrim DS 2 tab q 8 hours for 21 days total follwed by Bactrim DS 1 tab q day for prophylaxis until CD4>200 -continue genvoya -repeat CXR today Thank you Dr Te Betancourt for your consultation, will follow up with you. Leticia Bob MD Infectious Diseases Specialist [facility] M [phone] O [phone] Subjective Date of service: 10/21/16 Principal diagnosis: PJP Interval history: Feels better, cough is minimal, no fever. Microbiology: Blood cultures: 10/19 ngtd Urine cultures: 10/19 neg Respiratory cultures: Wound cultures: Stool cultures: Other: Influenza 10/19 ngtd Current Antimicrobials: levaquin 10/20 bactrim 10/20 Previous Antimicrobials: Objective - Exam Narrative Exam: General appearance: Alert in NAD, conversant Eyes: anicteric sclerae, moist conjunctivae; no lid-lag; PERRLA HENT: Atraumatic; oropharynx clear with moist mucous membranes and no mucosal ulcerations/no oral thrush; normal hard and soft palate. Normal external ears. Neck: Trachea midline; supple, no thyromegaly or lymphadenopathy Lungs: doe rhonchi scattered CV: RRR, no murmurs Abdomen: Soft, non-tender; no masses or hepatosplenomegaly Extremities: No peripheral edema or extremity lymphadenopathy Skin: Normal temperature, turgor and texture; no rash, ulcers or subcutaneous nodules Psych: Appropriate affect, alert and oriented to person, place and time. Neuro: alert and oriented x 3. Moving all extermities Lines: No CVL / PICC - Constitutional Vitals: Vital Signs Temp Pulse Resp BP Pulse Ox 99.0 F 108 H 18 105/41 94 10/21/16 07:48 10/21/16 07:48 10/21/16 07:48 10/21/16 07:48 10/21/16 07:48 Temperature -Last 24 Hours Temperature 99.0 F Temperature 99.0 F Temperature 99.1 F - Labs CBC & Chem 7: 10/19/16 14:22 10/19/16 14:22 Labs: Abnormal lab results 10/20/16 Range/Units 13:52 C-Reactive Protein 5.40 H (0.00-1.30) mg/dL
[2016-10-21] MEDS: LEVAQUIN 750MG/150ML 750 MG/150 ML BAG IV SCH (18:36)
[2016-10-22] MEDS: PERCOCET 5/325 PO PRN ×2 (02:50→22:57)
[2016-10-22] MEDS: NACL 0.9% 1000 ML 1,000 ML IV SCH (02:56)
[2016-10-22] MEDS: D5W IV SCH ×4 (03:19→21:51)
[2016-10-22] MEDS: BACTRIM IV SCH ×4 (03:19→21:51)
[2016-10-22] MEDS: HEPARIN SUB-Q SCH ×3 (05:39→21:51)
[2016-10-22 05:54] LABS: Basophils % (Auto) 0.3 % (0.0-1.8); Eosinophils % (Auto) 6.8 % (0.0-4.3); Hematocrit 33.3 % (35.5-45.6); Hemoglobin 11.1 gm/dl (11.8-15.2); Mean Corpuscular HGB Conc 33 % (32-34); Mean Corpuscular Hemoglobin 30 pg (28-32); Mean Corpuscular Volume 90 fl (84-94); Platelet Count 180 K/mm3 (140-440); Red Cell Distribution Width 14.5 % (13.2-15.2); White Blood Count 3.3 K/mm3 (4.5-11.0)
[2016-10-22 06:10] LABS: Anion Gap 18 mmol/L; BUN/Creatinine Ratio 6.25; Blood Urea Nitrogen 5 mg/dL (9-20); Calcium 8.8 mg/dL (8.4-10.2); Carbon Dioxide 23 mmol/L (22-30); Chloride 100.9 mmol/L (98-107); Glucose 94 mg/dL (75-100); Potassium 4.4 mmol/L (3.6-5.0); Sodium 137 mmol/L (137-145)
[2016-10-22] MEDS ORDERED: MILK OF MAGNESIA PO PRN (06:23)
[2016-10-22] MEDS: PROVENTIL IH SCH ×3 (07:49→20:41)
--- NOTE | 2016-10-22 09:13 | Progress Note ---
Assessment and Plan Assessment and plan: Sepsis. Etiology secondary to PJP pneumonia. Continue antibiotics per ID. PJP pneumonia. Continue Bactrim and Levaquin IV. Follow-up repeat chest x-ray. AIDS. Follow-up cryptococcal serum antigen, CD4 and HIV viral load. History of syphilis. Treated. History of oropharyngeal gonorrhea. Treated. History of zoster. History Interval history: No new complaints overnight. Hospitalist Physical - Constitutional Vitals: Temp Pulse Resp BP Pulse Ox 99.3 F 92 H 16 123/81 97 10/21/16 21:06 10/22/16 07:49 10/22/16 07:49 10/21/16 21:06 10/21/16 21:06 General appearance: Present: no acute distress, well-nourished - EENT Eyes: Present: PERRL, EOM intact ENT: hearing intact, clear oral mucosa, dentition normal - Neck Neck: Present: supple, normal ROM - Respiratory Respiratory effort: normal Respiratory: bilateral: diminished, rhonchi - Cardiovascular Rhythm: regular Heart Sounds: Present: S1 & S2. Absent: gallop, rub - Extremities Extremities: no ischemia, No edema, Full ROM - Abdominal General gastrointestinal: soft, non-tender, non-distended, normal bowel sounds - Integumentary Integumentary: Present: clear, warm, dry - Neurologic Neurologic: CNII-XII intact, moves all extremities Results - Labs CBC & Chem 7: 10/22/16 05:10 10/22/16 05:10 Labs: Laboratory Last Values WBC 3.3 K/mm3 (4.5-11.0) L 10/22/16 05:10 RBC 3.70 M/mm3 (3.65-5.03) 10/22/16 05:10 Hgb 11.1 gm/dl (11.8-15.2) L 10/22/16 05:10 Hct 33.3 % (35.5-45.6) L 10/22/16 05:10 MCV 90 fl (84-94) 10/22/16 05:10 MCH 30 pg (28-32) 10/22/16 05:10 MCHC 33 % (32-34) 10/22/16 05:10 RDW 14.5 % (13.2-15.2) 10/22/16 05:10 Plt Count 180 K/mm3 (140-440) 10/22/16 05:10 Lymph % (Auto) 18.9 % (13.4-35.0) 10/22/16 05:10 [place] % (Auto) 14.3 % (0.0-7.3) H 10/22/16 05:10 Eos % (Auto) 6.8 % (0.0-4.3) H 10/22/16 05:10 Baso % (Auto) 0.3 % (0.0-1.8) 10/22/16 05:10 Lymph # 0.6 K/mm3 (1.2-5.4) L 10/22/16 05:10 [place] # 0.5 K/mm3 (0.0-0.8) 10/22/16 05:10 Eos # 0.2 K/mm3 (0.0-0.4) 10/22/16 05:10 Baso # 0.0 K/mm3 (0.0-0.1) 10/22/16 05:10 Add Manual Diff Complete 10/19/16 14:22 Total Counted 100 10/19/16 14:22 Seg Neutrophils % 59.7 % (40.0-70.0) 10/22/16 05:10 Seg Neuts % (Manual) 91.0 % (40.0-70.0) H 10/19/16 14:22 Band Neutrophils % 0 % 10/19/16 14:22 Lymphocytes % (Manual) 2.0 % (13.4-35.0) L 10/19/16 14:22 Reactive Lymphs % (Man) 0 % 10/19/16 14:22 Monocytes % (Manual) 5.0 % (0.0-7.3) 10/19/16 14:22 Eosinophils % (Manual) 2.0 % (0.0-4.3) 10/19/16 14:22 Basophils % (Manual) 0 % (0.0-1.8) 10/19/16 14:22 Metamyelocytes % 0 % 10/19/16 14:22 Myelocytes % 0 % 10/19/16 14:22 Promyelocytes % 0 % 10/19/16 14:22 Blast Cells % 0 % 10/19/16 14:22 Nucleated RBC % Not Reportable 10/19/16 14:22 Seg Neutrophils # 2.0 K/mm3 (1.8-7.7) 10/22/16 05:10 Seg Neutrophils # Man 9.1 K/mm3 (1.8-7.7) H 10/19/16 14:22 Band Neutrophils # 0.0 K/mm3 10/19/16 14:22 Lymphocytes # (Manual) 0.2 K/mm3 (1.2-5.4) L 10/19/16 14:22 Abs React Lymphs (Man) 0.0 K/mm3 10/19/16 14:22 Monocytes # (Manual) 0.5 K/mm3 (0.0-0.8) 10/19/16 14:22 Eosinophils # (Manual) 0.2 K/mm3 (0.0-0.4) 10/19/16 14:22 Basophils # (Manual) 0.0 K/mm3 (0.0-0.1) 10/19/16 14:22 Metamyelocytes # 0.0 K/mm3 10/19/16 14:22 Myelocytes # 0.0 K/mm3 10/19/16 14:22 Promyelocytes # 0.0 K/mm3 10/19/16 14:22 Blast Cells # 0.0 K/mm3 10/19/16 14:22 WBC Morphology Not Reportable 10/19/16 14:22 Hypersegmented Neuts Not Reportable 10/19/16 14:22 Hyposegmented Neuts Not Reportable 10/19/16 14:22 Hypogranular Neuts Not Reportable 10/19/16 14:22 Smudge Cells Not Reportable 10/19/16 14:22 Toxic Granulation Not Reportable 10/19/16 14:22 Toxic Vacuolation Not Reportable 10/19/16 14:22 Dohle Bodies Not Reportable 10/19/16 14:22 Pelger-Huet Anomaly Not Reportable 10/19/16 14:22 Jesse Rods Not Reportable 10/19/16 14:22 Platelet Estimate Appears normal 10/19/16 14:22 Clumped Platelets Not Reportable 10/19/16 14:22 Plt Clumps, EDTA Not Reportable 10/19/16 14:22 Large Platelets Not Reportable 10/19/16 14:22 Giant Platelets Not Reportable 10/19/16 14:22 Platelet Satelliting Not Reportable 10/19/16 14:22 Plt Morphology Comment Not Reportable 10/19/16 14:22 RBC Morphology Not Reportable 10/19/16 14:22 Dimorphic RBCs Not Reportable 10/19/16 14:22 Polychromasia Not Reportable 10/19/16 14:22 Hypochromasia Not Reportable 10/19/16 14:22 Poikilocytosis Few 10/19/16 14:22 Anisocytosis 1+ 10/19/16 14:22 Microcytosis Not Reportable 10/19/16 14:22 Macrocytosis Not Reportable 10/19/16 14:22 Spherocytes Not Reportable 10/19/16 14:22 Pappenheimer Bodies Not Reportable 10/19/16 14:22 Sickle Cells Not Reportable 10/19/16 14:22 Target Cells Rare 10/19/16 14:22 Tear Drop Cells Not Reportable 10/19/16 14:22 Ovalocytes Not Reportable 10/19/16 14:22 Helmet Cells Not Reportable 10/19/16 14:22 [place] Bodies Not Reportable 10/19/16 14:22 [place] Rings Not Reportable 10/19/16 14:22 [place] Cells Not Reportable 10/19/16 14:22 Bite Cells Not Reportable 10/19/16 14:22 Crenated Cell Not Reportable 10/19/16 14:22 Elliptocytes Few 10/19/16 14:22 Acanthocytes (Spur) Not Reportable 10/19/16 14:22 Rouleaux Not Reportable 10/19/16 14:22 Hemoglobin C Crystals Not Reportable 10/19/16 14:22 Schistocytes Not Reportable 10/19/16 14:22 Malaria parasites Not Reportable 10/19/16 14:22 [place] Bodies Not Reportable 10/19/16 14:22 Hem Pathologist Commnt No 10/19/16 14:22 PT 12.6 Sec. (12.2-14.9) 10/19/16 14:22 INR 0.95 (0.87-1.13) 10/19/16 14:22 VBG pH 7.367 (7.320-7.420) 10/19/16 14:22 Sodium 137 mmol/L (137-145) 10/22/16 05:10 Potassium 4.4 mmol/L (3.6-5.0) 10/22/16 05:10 Chloride 100.9 mmol/L (98-107) 10/22/16 05:10 Carbon Dioxide 23 mmol/L (22-30) 10/22/16 05:10 Anion Gap 18 mmol/L 10/22/16 05:10 BUN 5 mg/dL (9-20) L 10/22/16 05:10 Creatinine 0.8 mg/dL (0.8-1.5) 10/22/16 05:10 Estimated GFR > 60 ml/min 10/22/16 05:10 BUN/Creatinine Ratio 6.25 % 10/22/16 05:10 Glucose 94 mg/dL (75-100) 10/22/16 05:10 Lactic Acid 1.50 mmol/L (0.7-2.0) 10/19/16 16:27 Calcium 8.8 mg/dL (8.4-10.2) 10/22/16 05:10 Total Bilirubin 0.70 mg/dL (0.1-1.2) 10/19/16 14:22 AST 26 units/L (5-40) 10/19/16 14:22 ALT 19 units/L (7-56) 10/19/16 14:22 Alkaline Phosphatase 52 units/L (35-129) 10/19/16 14:22 Lactate Dehydrogenase 251 units/L (91-180) H 10/19/16 14:22 Total Creatine Kinase 181 units/L (55-170) H 10/19/16 14:22 C-Reactive Protein 5.40 mg/dL (0.00-1.30) H 10/20/16 13:52 Total Protein 8.5 g/dL (6.3-8.2) H 10/19/16 14:22 Albumin 4.3 g/dL (3.9-5) 10/19/16 14:22 Albumin/Globulin Ratio 1.0 % 10/19/16 14:22 Urine Color Straw (Yellow) 10/19/16 19:45 Urine Turbidity Clear (Clear) 10/19/16 19:45 Urine pH 7.0 (5.0-7.0) 10/19/16 19:45 Ur Specific [place] 1.005 (1.003-1.030) 10/19/16 19:45 Urine Protein <15 mg/dl mg/dL (Negative) 10/19/16 19:45 Urine Glucose (UA) Neg mg/dL (Negative) 10/19/16 19:45 Urine Ketones Neg mg/dL (Negative) 10/19/16 19:45 Urine Blood Neg (Negative) 10/19/16 19:45 Urine Nitrite Neg (Negative) 10/19/16 19:45 Urine Bilirubin Neg (Negative) 10/19/16 19:45 Urine Urobilinogen < 2.0 mg/dL (<2.0) 10/19/16 19:45 Ur Leukocyte Esterase Neg (Negative) 10/19/16 19:45 Urine WBC (Auto) < 1.0 /HPF (0.0-6.0) 10/19/16 19:45 Urine RBC (Auto) 1.0 /HPF (0.0-6.0) 10/19/16 19:45
--- NOTE | 2016-10-22 14:06 | Progress Note ---
Assessment and Plan Assessment: 1) Sepsis: improving. Etiology - PJP pneumonia. CRP 5 2) Presumed PJP pneumonia in the setting of IRIS, less likely bronchitis / CAP - better 3) AIDS - recently started on genvoya 4 weeks ago - unknown CD4/VL 4) History of syphilis-treated 5) History of oropharygeal gonorrhea-treated 6) History of zoster Plan: -f/u procalcitonin, CD4, HIV-viral load -continue Bactrin IV with close monitor for rash/itching -continue levaquin IV -If continues to improve ok to D/C home on bactrim DS 2 tab q 8 hours for 21 days total followed by Bactrim DS 1 tab q day for prophylaxis until CD4>200 -continue genvoya -repeat CXR today Thank you Dr Te Betancourt for your consultation, will follow up with you. Leticia Bob MD Infectious Diseases Specialist [facility] M [phone] O [phone] Subjective Date of service: 10/22/16 Principal diagnosis: PJP Interval history: Feels better, cough is minimal, c/o mild itching after IV bactrim, no fever Microbiology: Blood cultures: 10/19 ngtd Urine cultures: 10/19 neg Respiratory cultures: Wound cultures: Stool cultures: Other: Influenza 10/19 ngtd Serum crypto ag negative Current Antimicrobials: levaquin 10/20 bactrim 10/20 Previous Antimicrobials: Objective - Exam Narrative Exam: General appearance: Alert in NAD, conversant Eyes: anicteric sclerae, moist conjunctivae; no lid-lag; PERRLA HENT: Atraumatic; oropharynx clear with moist mucous membranes and no mucosal ulcerations/no oral thrush; normal hard and soft palate. Normal external ears. Neck: Trachea midline; supple, no thyromegaly or lymphadenopathy Lungs: doe rhonchi scattered CV: RRR, no murmurs Abdomen: Soft, non-tender; no masses or hepatosplenomegaly Extremities: No peripheral edema or extremity lymphadenopathy Skin: Normal temperature, turgor and texture; no rash, ulcers or subcutaneous nodules Psych: Appropriate affect, alert and oriented to person, place and time. Neuro: alert and oriented x 3. Moving all extermities Lines: No CVL / PICC - Constitutional Vitals: Vital Signs Temp Pulse Resp BP Pulse Ox 98.1 F 92 H 16 119/63 97 10/22/16 07:32 10/22/16 07:49 10/22/16 07:49 10/22/16 07:32 10/22/16 07:32 Temperature -Last 24 Hours Temperature 98.1 F Temperature 99.3 F Temperature 98.2 F - Labs CBC & Chem 7: 10/22/16 05:10 10/22/16 05:10 Labs: Abnormal lab results 10/22/16 10/22/16 Range/Units 05:10 05:10 WBC 3.3 L (4.5-11.0) K/mm3 Hgb 11.1 L (11.8-15.2) gm/dl Hct 33.3 L (35.5-45.6) % [place] % (Auto) 14.3 H (0.0-7.3) % Eos % (Auto) 6.8 H (0.0-4.3) % Lymph # 0.6 L (1.2-5.4) K/mm3 BUN 5 L (9-20) mg/dL
--- NOTE | 2016-10-22 15:08 | XRay Report ---
Chest 2 views: History: Cough/presumed PCP pneumonia. Findings: Normal cardiomediastinal silhouette. Trachea is midline. No consolidation, pneumothorax or pleural effusion. Impression: No acute cardiopulmonary findings.
[2016-10-22] MEDS ORDERED: BENADRYL PO ONE (15:30)
[2016-10-22] MEDS: CLARITIN-D 24HR PO SCH ×2 (17:55→23:45)
[2016-10-22] MEDS: LEVAQUIN 750MG/150ML 750 MG/150 ML BAG IV SCH ×3 (17:56→19:43)
[2016-10-22 18:09] LABS: HIV-1 RNA QN PCR 3.83 Log cps/mL (<1.30)
[2016-10-23] MEDS: BACTRIM IV SCH ×2 (03:53→09:15)
[2016-10-23] MEDS: D5W IV SCH ×2 (03:53→09:15)
[2016-10-23] MEDS: HEPARIN SUB-Q SCH ×3 (05:00→22:00)
[2016-10-23 07:48] LABS: Anion Gap 18 mmol/L; Blood Urea Nitrogen 8 mg/dL (9-20); Calcium 9.4 mg/dL (8.4-10.2); Carbon Dioxide 26 mmol/L (22-30); Chloride 94.9 mmol/L (98-107); Glucose 77 mg/dL (75-100); Potassium 4.6 mmol/L (3.6-5.0); Sodium 134 mmol/L (137-145)
[2016-10-23] MEDS: PROVENTIL IH SCH ×3 (08:00→20:55)
[2016-10-23 08:04] LABS: Hematocrit 37.4 % (35.5-45.6); Hemoglobin 12.4 gm/dl (11.8-15.2); Mean Corpuscular HGB Conc 33 % (32-34); Mean Corpuscular Hemoglobin 30 pg (28-32); Mean Corpuscular Volume 90 fl (84-94); Platelet Count 201 K/mm3 (140-440); Red Blood Count 4.14 M/mm3 (3.65-5.03); Red Cell Distribution Width 14.3 % (13.2-15.2); White Blood Count 3.5 K/mm3 (4.5-11.0)
--- NOTE | 2016-10-23 09:06 | Progress Note ---
Assessment and Plan Assessment and plan: Sepsis. Etiology secondary to PJP pneumonia. Continue antibiotics per ID. Patient with low-grade temperature yesterday afternoon. Blood cultures are thus far are negative. PJP pneumonia. Continue Bactrim and Levaquin IV. Follow-up repeat chest x- ray. Patient reports that he believes Bactrim is making him nauseated. ? Medication intolerance. AIDS. Follow-up cryptococcal serum antigen, CD4 and HIV viral load. History of syphilis. Treated. History of oropharyngeal gonorrhea. Treated. History of zoster. History Interval history: Patient reports nausea associated with taking Bactrim. Hospitalist Physical - Constitutional Vitals: Temp Pulse Resp BP Pulse Ox 98.9 F 89 16 107/62 97 10/23/16 08:07 10/23/16 08:15 10/23/16 08:15 10/23/16 08:07 10/23/16 08:07 General appearance: Present: no acute distress, well-nourished - EENT Eyes: Present: PERRL, EOM intact ENT: hearing intact, clear oral mucosa, dentition normal - Neck Neck: Present: supple, normal ROM - Respiratory Respiratory effort: normal Respiratory: bilateral: CTA - Cardiovascular Rhythm: regular Heart Sounds: Present: S1 & S2. Absent: gallop, rub - Extremities Extremities: no ischemia, No edema, Full ROM - Abdominal General gastrointestinal: soft, non-tender, non-distended, normal bowel sounds - Integumentary Integumentary: Present: clear, warm, dry - Neurologic Neurologic: CNII-XII intact, moves all extremities Results - Labs CBC & Chem 7: 10/23/16 06:41 10/23/16 06:41 Labs: Laboratory Last Values WBC 3.5 K/mm3 (4.5-11.0) L 10/23/16 06:41 RBC 4.14 M/mm3 (3.65-5.03) 10/23/16 06:41 Hgb 12.4 gm/dl (11.8-15.2) 10/23/16 06:41 Hct 37.4 % (35.5-45.6) 10/23/16 06:41 MCV 90 fl (84-94) 10/23/16 06:41 MCH 30 pg (28-32) 10/23/16 06:41 MCHC 33 % (32-34) 10/23/16 06:41 RDW 14.3 % (13.2-15.2) 10/23/16 06:41 Plt Count 201 K/mm3 (140-440) 10/23/16 06:41 Lymph % (Auto) 18.9 % (13.4-35.0) 10/22/16 05:10 [place] % (Auto) [employer] Manager 10/23/16 06:41 Eos % (Auto) 6.8 % (0.0-4.3) H 10/22/16 05:10 Baso % (Auto) 0.3 % (0.0-1.8) 10/22/16 05:10 Lymph # 0.6 K/mm3 (1.2-5.4) L 10/22/16 05:10 [place] # 0.5 K/mm3 (0.0-0.8) 10/22/16 05:10 Eos # 0.2 K/mm3 (0.0-0.4) 10/22/16 05:10 Baso # 0.0 K/mm3 (0.0-0.1) 10/22/16 05:10 Add Manual Diff Complete 10/19/16 14:22 Total Counted 100 10/19/16 14:22 Seg Neutrophils % 59.7 % (40.0-70.0) 10/22/16 05:10 Seg Neuts % (Manual) 91.0 % (40.0-70.0) H 10/19/16 14:22 Band Neutrophils % 0 % 10/19/16 14:22 Lymphocytes % (Manual) 2.0 % (13.4-35.0) L 10/19/16 14:22 Reactive Lymphs % (Man) 0 % 10/19/16 14:22 Monocytes % (Manual) 5.0 % (0.0-7.3) 10/19/16 14:22 Eosinophils % (Manual) 2.0 % (0.0-4.3) 10/19/16 14:22 Basophils % (Manual) 0 % (0.0-1.8) 10/19/16 14:22 Metamyelocytes % 0 % 10/19/16 14:22 Myelocytes % 0 % 10/19/16 14:22 Promyelocytes % 0 % 10/19/16 14:22 Blast Cells % 0 % 10/19/16 14:22 Nucleated RBC % Not Reportable 10/19/16 14:22 Seg Neutrophils # 2.0 K/mm3 (1.8-7.7) 10/22/16 05:10 Seg Neutrophils # Man 9.1 K/mm3 (1.8-7.7) H 10/19/16 14:22 Band Neutrophils # 0.0 K/mm3 10/19/16 14:22 Lymphocytes # (Manual) 0.2 K/mm3 (1.2-5.4) L 10/19/16 14:22 Abs React Lymphs (Man) 0.0 K/mm3 10/19/16 14:22 Monocytes # (Manual) 0.5 K/mm3 (0.0-0.8) 10/19/16 14:22 Eosinophils # (Manual) 0.2 K/mm3 (0.0-0.4) 10/19/16 14:22 Basophils # (Manual) 0.0 K/mm3 (0.0-0.1) 10/19/16 14:22 Metamyelocytes # 0.0 K/mm3 10/19/16 14:22 Myelocytes # 0.0 K/mm3 10/19/16 14:22 Promyelocytes # 0.0 K/mm3 10/19/16 14:22 Blast Cells # 0.0 K/mm3 10/19/16 14:22 WBC Morphology Not Reportable 10/19/16 14:22 Hypersegmented Neuts Not Reportable 10/19/16 14:22 Hyposegmented Neuts Not Reportable 10/19/16 14:22 Hypogranular Neuts Not Reportable 10/19/16 14:22 Smudge Cells Not Reportable 10/19/16 14:22 Toxic Granulation Not Reportable 10/19/16 14:22 Toxic Vacuolation Not Reportable 10/19/16 14:22 Dohle Bodies Not Reportable 10/19/16 14:22 Pelger-Huet Anomaly Not Reportable 10/19/16 14:22 Jesse Rods Not Reportable 10/19/16 14:22 Platelet Estimate Appears normal 10/19/16 14:22 Clumped Platelets Not Reportable 10/19/16 14:22 Plt Clumps, EDTA Not Reportable 10/19/16 14:22 Large Platelets Not Reportable 10/19/16 14:22 Giant Platelets Not Reportable 10/19/16 14:22 Platelet Satelliting Not Reportable 10/19/16 14:22 Plt Morphology Comment Not Reportable 10/19/16 14:22 RBC Morphology Not Reportable 10/19/16 14:22 Dimorphic RBCs Not Reportable 10/19/16 14:22 Polychromasia Not Reportable 10/19/16 14:22 Hypochromasia Not Reportable 10/19/16 14:22 Poikilocytosis Few 10/19/16 14:22 Anisocytosis 1+ 10/19/16 14:22 Microcytosis Not Reportable 10/19/16 14:22 Macrocytosis Not Reportable 10/19/16 14:22 Spherocytes Not Reportable 10/19/16 14:22 Pappenheimer Bodies Not Reportable 10/19/16 14:22 Sickle Cells Not Reportable 10/19/16 14:22 Target Cells Rare 10/19/16 14:22 Tear Drop Cells Not Reportable 10/19/16 14:22 Ovalocytes Not Reportable 10/19/16 14:22 Helmet Cells Not Reportable 10/19/16 14:22 [place] Bodies Not Reportable 10/19/16 14:22 [place] Rings Not Reportable 10/19/16 14:22 [place] Cells Not Reportable 10/19/16 14:22 Bite Cells Not Reportable 10/19/16 14:22 Crenated Cell Not Reportable 10/19/16 14:22 Elliptocytes Few 10/19/16 14:22 Acanthocytes (Spur) Not Reportable 10/19/16 14:22 Rouleaux Not Reportable 10/19/16 14:22 Hemoglobin C Crystals Not Reportable 10/19/16 14:22 Schistocytes Not Reportable 10/19/16 14:22 Malaria parasites Not Reportable 10/19/16 14:22 [place] Bodies Not Reportable 10/19/16 14:22 Hem Pathologist Commnt No 10/19/16 14:22 PT 12.6 Sec. (12.2-14.9) 10/19/16 14:22 INR 0.95 (0.87-1.13) 10/19/16 14:22 VBG pH 7.367 (7.320-7.420) 10/19/16 14:22 Sodium 134 mmol/L (137-145) L 10/23/16 06:41 Potassium 4.6 mmol/L (3.6-5.0) 10/23/16 06:41 Chloride 94.9 mmol/L (98-107) L 10/23/16 06:41 Carbon Dioxide 26 mmol/L (22-30) 10/23/16 06:41 Anion Gap 18 mmol/L 10/23/16 06:41 BUN 8 mg/dL (9-20) L 10/23/16 06:41 Creatinine 1.0 mg/dL (0.8-1.5) 10/23/16 06:41 Estimated GFR > 60 ml/min 10/23/16 06:41 BUN/Creatinine Ratio 8.00 % 10/23/16 06:41 Glucose 77 mg/dL (75-100) 10/23/16 06:41 Lactic Acid 1.50 mmol/L (0.7-2.0) 10/19/16 16:27 Calcium 9.4 mg/dL (8.4-10.2) 10/23/16 06:41 Total Bilirubin 0.70 mg/dL (0.1-1.2) 10/19/16 14:22 AST 26 units/L (5-40) 10/19/16 14:22 ALT 19 units/L (7-56) 10/19/16 14:22 Alkaline Phosphatase 52 units/L (35-129) 10/19/16 14:22 Lactate Dehydrogenase 251 units/L (91-180) H 10/19/16 14:22 Total Creatine Kinase 181 units/L (55-170) H 10/19/16 14:22 C-Reactive Protein 5.40 mg/dL (0.00-1.30) H 10/20/16 13:52 Total Protein 8.5 g/dL (6.3-8.2) H 10/19/16 14:22 Albumin 4.3 g/dL (3.9-5) 10/19/16 14:22 Albumin/Globulin Ratio 1.0 % 10/19/16 14:22 Urine Color Straw (Yellow) 10/19/16 19:45 Urine Turbidity Clear (Clear) 10/19/16 19:45 Urine pH 7.0 (5.0-7.0) 10/19/16 19:45 Ur Specific [place] 1.005 (1.003-1.030) 10/19/16 19:45 Urine Protein <15 mg/dl mg/dL (Negative) 10/19/16 19:45 Urine Glucose (UA) Neg mg/dL (Negative) 10/19/16 19:45 Urine Ketones Neg mg/dL (Negative) 10/19/16 19:45 Urine Blood Neg (Negative) 10/19/16 19:45 Urine Nitrite Neg (Negative) 10/19/16 19:45 Urine Bilirubin Neg (Negative) 10/19/16 19:45 Urine Urobilinogen < 2.0 mg/dL (<2.0) 10/19/16 19:45 Ur Leukocyte Esterase Neg (Negative) 10/19/16 19:45 Urine WBC (Auto) < 1.0 /HPF (0.0-6.0) 10/19/16 19:45 Urine RBC (Auto) 1.0 /HPF (0.0-6.0) 10/19/16 19:45 HIV-1 RNA PCR copies/ml 6706 copies/mL (<20) H 10/20/16 13:52 HIV-1 RNA (PCR) log 3.83 Log cps/mL (<1.30) H 10/20/16 13:52
[2016-10-23 09:26] LABS: Blastocytes % (Manual) 0 %
[2016-10-23 09:28] LABS: Basophils % (Manual) 0 % (0.0-1.8)
[2016-10-23 09:29] LABS: Diff Status Complete; Ovalocytes 1+; Platelet Estimate Consistent w Auto; Poikilocytosis 1+
--- NOTE | 2016-10-23 10:29 | Progress Note ---
Assessment and Plan Assessment: 1) Sepsis: improving. Etiology - PJP pneumonia. CRP 5. Still low grade fever ? from allergic reaction 2) Presumed PJP pneumonia in the setting of IRIS, less likely bronchitis / CAP - better. Repeat CXR negative. 3) AIDS - recently started on genvoya 4 weeks ago - unknown CD4/ PS=2700 4) History of syphilis-treated 5) History of oropharygeal gonorrhea-treated 6) History of zoster 7) Allergic reaction to Bactrim IV - itching/rash Plan: -stop bactrim and label it as an allergy -start mepron 750 mg PO q12h -f/u procalcitonin, CD4 -change levaquin IV to PO day 4 of 7 -If continues to improve ok to D/C home on mepron 750 mg PO q 12h for 21 days total followed by mepron 1500 mg q day for prophylaxis until CD4>200 -continue genvoya -ID clinic f/u in 1 week after D/C with Dr Ramirez at [facility] Thank you Dr Aguirre for your consultation, will follow up with you. Leticia Bob MD Infectious Diseases Specialist [facility] [phone] O [phone] Subjective Date of service: 10/23/16 Principal diagnosis: PJP Interval history: Feels better, cough is minimal,had another episode of itching/rash after IV bactrim, and spiked a fever at 100.2 Microbiology: Blood cultures: 10/19 ngtd Urine cultures: 10/19 neg Respiratory cultures: Wound cultures: Stool cultures: Other: Influenza 10/19 ngtd Serum crypto ag negative Current Antimicrobials: levaquin 10/20 bactrim 10/20 Previous Antimicrobials: Objective - Exam Narrative Exam: General appearance: Alert in NAD, conversant Eyes: anicteric sclerae, moist conjunctivae; no lid-lag; PERRLA HENT: Atraumatic; oropharynx clear with moist mucous membranes and no mucosal ulcerations/no oral thrush; normal hard and soft palate. Normal external ears. Neck: Trachea midline; supple, no thyromegaly or lymphadenopathy Lungs: doe rhonchi scattered CV: RRR, no murmurs Abdomen: Soft, non-tender; no masses or hepatosplenomegaly Extremities: No peripheral edema or extremity lymphadenopathy Skin: mild papular rash over arms Psych: Appropriate affect, alert and oriented to person, place and time. Neuro: alert and oriented x 3. Moving all extermities Lines: No CVL / PICC - Constitutional Vitals: Vital Signs Temp Pulse Resp BP Pulse Ox 98.9 F 89 16 107/62 97 10/23/16 08:07 10/23/16 08:15 10/23/16 08:15 10/23/16 08:07 10/23/16 08:07 Temperature -Last 24 Hours Temperature 98.9 F Temperature 98.5 F Temperature 100.2 F - Labs CBC & Chem 7: 10/23/16 06:41 10/23/16 06:41 Labs: Abnormal lab results 10/20/16 10/23/16 10/23/16 Range/Units 13:52 06:41 06:41 WBC 3.5 L (4.5-11.0) K/mm3 Monocytes % (Manual) 21.0 H (0.0-7.3) % Seg Neutrophils # Man 1.5 L (1.8-7.7) K/mm3 Lymphocytes # (Manual) 0.9 L (1.2-5.4) K/mm3 Sodium 134 L (137-145) mmol/L Chloride 94.9 L (98-107) mmol/L BUN 8 L (9-20) mg/dL HIV-1 RNA PCR copies/ml 6706 H (<20) copies/mL HIV-1 RNA (PCR) log 3.83 H (<1.30) Log cps/mL
[2016-10-23] MEDS: MEPRON PO SCH ×2 (13:58→22:00)
[2016-10-23] MEDS: LEVAQUIN PO SCH (13:58)
[2016-10-23] MEDS: CLARITIN-D 24HR PO SCH ×2 (13:58→14:54)
[2016-10-24] MEDS: HEPARIN SUB-Q SCH (07:37)
[2016-10-24] MEDS: PROVENTIL IH SCH (07:42)
--- NOTE | 2016-10-24 07:52 | Discharge Summary ---
Providers - Providers Date of Admission: 10/19/16 22:44 Attending physician: MONY MCLEOD MD 10/19/16 22:45 Consult to Physician [CONS] Routine Consulting Provider: CRESENCIO ERAZO Reason For Exam: HIV, fever Place consult to:: ID Notified:: voice mail Phone number called:: [phone] Was contact made?: No Time called:: 09:19 Primary care physician: [employer] Hospitalization Condition: Stable Hospital course: 26-year-old man with past medical history of HIV/AIDS, syphilis, who presents with cough productive of green sputum. He was diagnosed with HIV 3 years prior , and just started antiretroviral medications 2 months ago. He has received penicillin injection 2 for treatment of syphilis, and is on Bactrim for PCP prophylaxis Sepsis. Etiology secondary to PJP pneumonia. Continue antibiotics per ID. Patient with low-grade temperature yesterday afternoon. Blood cultures are thus far are negative. -stop bactrim and label it as an allergy -start mepron 750 mg PO q12h -f/u procalcitonin, CD4 -change levaquin IV to PO day 4 of 7 -If continues to improve ok to D/C home on mepron 750 mg PO q 12h for 21 days total followed by mepron 1500 mg q day for prophylaxis until CD4>200 -continue genvoya -ID clinic f/u in 1 week after D/C with Dr Ramirez at [facility] PJP pneumonia. Continue Bactrim and Levaquin IV. Follow-up repeat chest x- ray. Patient reports that he believes Bactrim is making him nauseated. ? Medication intolerance. AIDS. Follow-up cryptococcal serum antigen, CD4 and HIV viral load. History of syphilis. Treated. History of oropharyngeal gonorrhea. Treated. History of zoster. Disposition: - TO HOME OR SELFCARE Time spent for discharge: 33 minutes Core Measure Documentation - Palliative Care Palliative Care/ Comfort Measures: Not Applicable - Core Measures Any of the following diagnoses?: none Exam - Constitutional Vitals: Temp Pulse Resp BP Pulse Ox 98.1 F 89 18 110/67 98 10/24/16 00:42 10/24/16 07:43 10/24/16 07:43 10/24/16 00:42 10/24/16 00:42 General appearance: Present: no acute distress, well-nourished - EENT Eyes: Present: PERRL ENT: hearing intact, clear oral mucosa - Neck Neck: Present: supple, normal ROM - Respiratory Respiratory effort: normal Respiratory: bilateral: CTA - Cardiovascular Heart Sounds: Present: S1 & S2. Absent: rub, click - Extremities Extremities: pulses symmetrical, No edema Peripheral Pulses: within normal limits - Abdominal General gastrointestinal: Present: soft, non-tender, non-distended, normal bowel sounds Male genitourinary: Present: normal - Integumentary Integumentary: Present: clear, warm, dry - Musculoskeletal Musculoskeletal: gait normal, strength equal bilaterally - Psychiatric Psychiatric: appropriate mood/affect, intact judgment & insight - Neurologic Neurologic: CNII-XII intact, moves all extremities Plan Follow up with: PRIMARY CARE,MD [Primary Care Provider] - 3-5 Days Prescriptions: Atovaquone [Mepron] 750 mg PO BID #300 ml Levofloxacin [Levaquin TAB] 750 mg PO DAILY #3 tablet oxyCODONE /ACETAMINOPHEN [Percocet 5/325 mg] 1 tab PO Q6HR PRN #15 tablet PRN Reason: Pain
[2016-10-24 08:11] VITALS: BP 122/70
[2016-10-24] MEDS: CLARITIN-D 24HR PO SCH (10:53)
[2016-10-24] MEDS: LEVAQUIN PO SCH (10:53)
[2016-10-24] MEDS: MEPRON PO SCH (10:53)
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
== END 2016-10-24 10:55 | disposition home or self-care (01) | DRG 976 ==
LOC: ED 12:00 → 3A 22:44
PROVIDERS: ADMIT Internal Medicine; ATTEND Internal Medicine
DX: A41.9 Sepsis, unspecified organism (principal); B20 Human immunodeficiency virus [HIV] disease; B59 Pneumocystosis; F17.200 Nicotine dependence, unspecified, uncomplicated; J20.9 Acute bronchitis, unspecified; J01.90 Acute sinusitis, unspecified; Z79.899 Other long term (current) drug therapy; Z91.013 Allergy to seafood; Z88.8 Allergy status to other drugs, medicaments and biological substances
CPT/HCPCS: 36415; 71020; 80048; 80053; 81001; 82024; 82140; 82550; 82805; 83615; 85007; 85025; 85610; 86140; 86403; 87040; 87086; 87116; 87400; 87430; 87491; 87536; 94640; 99406; J1644; J1885; J1956; J2405; J7030; J7060

== ENCOUNTER 2017-11-08 23:58 | Emergency (ER) | payer SELFPAY ==
[2017-11-09] MEDS ORDERED: TYLENOL ONE (01:06)
[2017-11-09] MEDS ORDERED: TYLENOL PO ONE (01:14)
--- NOTE | 2017-11-09 01:54 | XRay Report ---
FINAL REPORT PROCEDURE: XR SHOULDER 2+V LT TECHNIQUE: LEFT shoulder radiographs including AP views in internal and external rotation. CPT 43769 HISTORY: Left shoulder pain COMPARISON: No prior studies are available for comparison. FINDINGS: Fracture (s) and/or Dislocation(s): None . Joint space(s): Normal . Soft tissues: Normal . Bone mineralization: Normal . Foreign bodies: None . IMPRESSION: Normal Examination
--- NOTE | 2017-11-09 01:57 | XRay Report ---
FINAL REPORT PROCEDURE: XR FOOT 2V RT TECHNIQUE: RIGHT foot radiographs, AP, lateral, and oblique views. CPT 91554 HISTORY: Right foot pain COMPARISON: No prior studies are available for comparison. FINDINGS: Fracture (s) and/or Dislocation(s): There is a cortical fracture of the base of the 1st distal phalanx. Alignment: Normal . Joint space(s): Normal . Soft tissues: Normal . Bone mineralization: Normal . Foreign bodies: None . Calcaneal spurring: None . IMPRESSION: Fracture of the base of the 1st distal phalanx..
--- NOTE | 2017-11-09 02:26 | Cat Scan Report ---
FINAL REPORT PROCEDURE: CT HEAD/BRAIN WO CON TECHNIQUE: Computerized tomography of the head was performed without contrast material. HISTORY: Head Injury COMPARISON: No prior studies are available for comparison. FINDINGS: Skull and scalp: There is left parietal scalp swelling. There is no skull fracture.. Paranasal sinuses: Normal. Ventricles and subarachnoid spaces: Normal. Cerebrum: No evidence of hemorrhage, acute infarction or mass . Cerebellum and brainstem: No evidence of hemorrhage, acute infarction or mass. Vasculature: Normal. Comments: There is fluid in the left mastoid air cells. IMPRESSION: There is left parietal scalp swelling. There is no skull fracture.. There is no intracranial hemorrhage. There is fluid in the left mastoid air cells.
[2017-11-09] MEDS ORDERED: PERCOCET 5/325 PO ONE (04:32)
[2017-11-09] MEDS ORDERED: MOTRIN PO ONE (04:32)
[2017-11-09] MEDS ORDERED: NACL 0.9% IR ONE (04:32)
[2017-11-09] MEDS ORDERED: ANTIBIOTIC OINT TP STA (04:32)
[2017-11-09] MEDS ORDERED: BOOSTRIX IM ONE (04:32)
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
[2017-11-09 05:23] VITALS: BP 117/85
== END 2017-11-09 05:22 | disposition home or self-care (01) ==
LOC: ED 23:58
DX: S92.424A Nondisplaced fracture of distal phalanx of right great toe, initial encounter for closed fracture (principal); S00.01XA Abrasion of scalp, initial encounter; Z88.2 Allergy status to sulfonamides; Z91.013 Allergy to seafood; Y08.89XA Assault by other specified means, initial encounter; Y93.89 Activity, other specified; Y92.89 Other specified places as the place of occurrence of the external cause; Y99.8 Other external cause status
CPT/HCPCS: 70450; 90471; 90715; 99284